=== PATIENT | female | born 1990 | race Caucasian/White ===

== ENCOUNTER → 2018-09-05 | Outpatient (CLI) | payer BC | LOC: ZCOL.LAB 16:52 | DX: L02.411 Cutaneous abscess of right axilla (principal) ==

== ENCOUNTER 2023-07-13 06:14 | Inpatient (IN) | payer BC ==
[2023-07-13] VITALS (58 sets, daily range): BP systolic 96–137; BP diastolic 53–90; PULSE 64–125; TEMP 97.8–98.6
[~2023-07-13] VITALS: Ht 177.8 cm; Wt 85.0 kg
--- NOTE | 2023-07-13 06:25 | NUR ---
PATIENT AMBULATORY TO UNIT WITH SPOUSE, GENEVIEVE. PATIENT ORIENTED TO LABOR ROOM 4 AND ASSISTED INTO A GOWN. PATIENT REPORTS GOOD MOVEMENT, DENIES CONTRACTIONS, LEAKING OF FLUID OR VAGINAL BLEEDING. EFM AND TOCO PLACED AND TRACING. ASSESSMENTS COMPLETE, CONSENTS EXPLAINED AND SIGNED.
[2023-07-13] MEDS ORDERED: LR 1,000 ML IV SCH (06:30)
[2023-07-13] MEDS ORDERED: LR & Oxytocin 500 ML IV SCH (06:30)
[2023-07-13] MEDS ORDERED: PRENATAL (06:38)
[2023-07-13] MEDS ORDERED: UNISOM25 MG PO (06:38)
[2023-07-13] MEDS ORDERED: VITAMIN B-625 MG (06:38)
[2023-07-13] MEDS ORDERED: MAGNESIUM200 MG PO (06:39)
[2023-07-13 07:18] LABS: BASO # 0.1 K/mm3 (0.0-0.2); BASO % 0.3 % (0.0-2.0); EOS # 0.1 K/mm3 (0.0-0.7); EOS % 0.9 % (0.0-4.0); GRAN # 10.6 K/mm3 (1.4-6.5); GRAN % 70.7 % (42.2-75.2); HEMOGLOBIN 11.9 g/dl (12.5-16.0); LYMPH # 2.9 K/mm3 (1.2-3.4); LYMPH % 19.3 % (20.0-51.0); MEAN CELL VOLUME 86 fl (80.0-100.0); MEAN CORPUSCULAR HEMOGLOBIN 30 pg (27-31); MEAN CORPUSCULAR HGB CONC 34 g/dl (33.0-37.0); MEAN PLATELET VOLUME 9.8 fl (7.4-10.4); MONO # 1.1 K/mm3 (0.1-0.6); MONO % 7.4 % (1.7-9.3); PLATELET COUNT 280 K/mm3 (130-400); RED BLOOD COUNT 4.03 M/mm3 (4.10-5.30); REDCELL DISTRIBUTION WIDTH-CV 12.8 % (11.5-14.5)
[2023-07-13 07:20] LABS: HEMATOCRIT 34.8 % (37.0-47.0)
--- NOTE | 2023-07-13 07:30 | NUR ---
IN ROOM TO DISCUSS PLAN OF CARE WITH PATIENT, DISCUSSES PLACEMENT OF COOKS CATHETER, PATIENT AGREES.
--- NOTE | 2023-07-13 07:45 | NUR ---
0780- IN PATIENTS ROOM PREPARING FOR MANUAL DILATOR INSERTION. 0701- CATHETER IN PLACE, THIS RN ASSISTS WITH FILLING UTERINE BALLOON TO 80ML OF IRRIGATION FOLLOWED BY 60 ML OF IRRIGATION IN THE VAGINAL BALLOON. PATIETN TOLERATED WELL. ShoopS CATHETERTAPED TO INSIDE OF PATIENTS LEFT THIGH.
--- NOTE | 2023-07-13 08:05 | NUR ---
PATIENT ON BIRTHING BALL AT THIS TIME, DIFFICULTY TRACING FHR. THIS RN AT BEDSIDE ADJUSTING EFM.
--- NOTE | 2023-07-13 09:15 | NUR ---
CONTRACTIONS NOT TRACING WELL AT THIS ITME, THIS RN TO BEDSIDE TO ADJUST TOCO DIFFICULTY TRACING CONTINUES DUE TO PATIENT MOVEMENT.
--- NOTE | 2023-07-13 09:53 | NUR ---
0948- PATIENT ASSISTED BACK TO BED AFTER USING THE RESTROOM, PATIENT LAYING SUPINE WITH BOTTOM OF THE BED OFF AND FEET ON THE FLOOR. 0953- TO BEDSIDE TO ASSESS PATIENT PROGRESSION. PALPATES MODERATE CONTRACTIONS.
[2023-07-13] MEDS ORDERED: ROPivacaine PF 0.2% 200 ML IV ONE (12:09)
--- NOTE | 2023-07-13 12:30 | NUR ---
1150-PATIENT REQUESTING AN EPIDURAL, CHITRA CALLED, LR BOLUS STARTED. 1215- CHITRA AT PATIENTS BEDISDE TO DISCUSS EPIDURAL PLACEMENT. PATIENT REPOSITIONED TO SITTING UPRIGHT ON SIDE OF BED. DIFFICULTY TRACING FHR DUE TO MATERNAL POSITION. 1222- SINGLE SHOT BY HUMBLE BUENROSTRO. 1224- TEST DOSE ADMINISTERED BY HUMBLE BUENROSTRO. 1230- PATIENT REPOSITIONED TO WEDGED RIGHT. THIS RN REAMINS AT BEDSIDE TO ASSESS VITAL SIGNS.
[2023-07-13] MEDS ORDERED: ePHEDrine 50 MG/10 ML VIAL IV PRN (12:45)
[2023-07-13] MEDS ORDERED: diphenhydrAMINE 50 MG/ML 1 ML VIAL IV PRN (12:45)
[2023-07-13] MEDS ORDERED: Naloxone 0.4 MG/ML VIAL IV PRN (12:45)
[2023-07-13] MEDS ORDERED: Ondansetron 4 MG/2 ML VIAL IV PRN (12:45)
[2023-07-13] MEDS ORDERED: diphenhydrAMINE 25 MG CAP PO PRN (12:45)
--- NOTE | 2023-07-13 13:15 | NUR ---
LIZARRAGA PLACED BY THIS RN, PATIENT REPOSITIONED TO LEFT LATERAL 'FLYING COWGIRL' WITH PEANUT BALL BETWEEN ANKLES.
--- NOTE | 2023-07-13 13:15 | NUR ---
LIZARRAGA PLACED BY THIS RN, PATIENT REPOSITIONED TO RIGHT LATERAL 'FLYING COWGIRL' WITH PEANUT BALL BETWEEN ANKLES.
--- NOTE | 2023-07-13 14:00 | NUR ---
THIS RN TO BEDISDE TO REPOSITION PATIENT. COOKS BALLOON FALLS OUT OF VAGINA WHILE REPOSITIONING. SVE /-2.
--- NOTE | 2023-07-13 14:07 | NUR ---
TO BEDSIDE TO ASSESS PROGRESS. NOTIFIED OF COOKS BALLOON FALLING OUT, SVE /-2. AROM AT THIS TIME, CLEAR FLUID. PATIENT REPOSITIONED TO LEFT LATERAL 'FLYING COWGIRL' WITH PEANUT BALL BETWEEN ANKLES.
--- NOTE | 2023-07-13 18:30 | NUR ---
DIFFICULTY TRACING FHR AND CTX DUE TO PT POSITIONING RN AT BS ATTEMPTING TO ADJUST EFM X2
--- NOTE | 2023-07-13 19:20 | NUR ---
191: IUPC PLACED BY DR. REBOLLAR. CLEAR FLUID RETURNED. 1919: FSE PLACED BY DR. REBOLLAR. FHR CORRELATION WITH EXTERNAL US. PT TOLORATED PROCEDURE WELL
--- NOTE | 2023-07-13 23:39 | NUR ---
2149: PT IN LITHOTOMY POSITION TO BEGIN PUSING WITH NURSE. GOOD MATERNAL PUSHING EFFORT. 5: FSE REMOVED BY RN DUE TO ARTIFACT. EXTERNAL US PLACED. 6: LIZARRAGA CATH REMOVED 2310: CONTINUED GOOD MATERNAL PUSHING EFFORT. DR. REBOLLAR RETURNS TO BS. 2315: IUPC REMOVED BY DR. REBOLLAR. PT REPORTING CONTRACTION OCCURANCES. 2331: VIABLE FEMALE INFANT DELIVERED WITH NEW NOTED MEC FLUID AND TERMINAL MEC. INFANT BULB SUCTIONED BY DR. REBOLLAR. INFANT PLACED ONTO MATERNAL ABDOMEN FOR ROUTINE NRP BY NURSERY RN. 2334: START OF REPAIR BY DR. REBOLLAR WHILE AWAITING DELAYED CORD CLAMPING. 2339: PLACENTA DELIVERED 2342: REPAIR COMPLETED BY DR. REBOLLAR. 2345: INITIATION OF RECOVERY FUNDAL RUBS STARTED BY DR. REBOLLAR. 2346: LOWER UTERINE SEG SWEEP BY DR. REBOLLAR. REQUEST FOR 600MG MISO. 2348: 600MG RECTAL MISO PLACED BY DR. REBOLLAR.
[2023-07-13] MEDS ORDERED: miSOPROStol 200 MCG TAB RC SCH (23:48)
[2023-07-14] VITALS (8 sets, daily range): BP systolic 100–132; BP diastolic 44–73; PULSE 59–114; TEMP 98–98.1
[2023-07-14] MEDS ORDERED: Naloxone 0.4 MG/ML VIAL IV PRN (00:15)
[2023-07-14] MEDS ORDERED: Phenylephrine/Mineral Oil/Petrolatum 57 GM TUBE RC PRN (00:15)
[2023-07-14] MEDS ORDERED: Witch Hazel 50% Pads Bulk TUB TP PRN (00:15)
[2023-07-14] MEDS ORDERED: Loratadine 10 MG TAB PO PRN (00:15)
[2023-07-14] MEDS ORDERED: Magnes Hydrox (MOM) 80 MG/ML 30 ML CUP PO PRN (00:15)
[2023-07-14] MEDS ORDERED: Mag/Al Hydrox/Simeth Susp 30 ML CUP PO PRN (00:15)
[2023-07-14] MEDS ORDERED: Ibuprofen 600 MG TAB PO SCH (00:15)
[2023-07-14] MEDS ORDERED: Acetaminophen 500 MG TAB PO SCH (00:15)
[2023-07-14] MEDS ORDERED: oxyCODONE 5 MG TAB PO PRN (00:15)
[2023-07-14] MEDS ORDERED: Measles/Mumps/Rubella Virus Vaccine Live w Diluent 0.5 ML VIAL SQ SCH (00:15)
--- NOTE | 2023-07-14 06:40 | NUR ---
PT REPORTS NEEDING TO USE BATHROOM AGAIN. PT ABLE TO HOLD EACH LEG OFF BED. PT STANDS UP NEXT TO BED WITH STANDBY ASSIST, ABLE TO BEAR FULL WEIGHT, DENIES NUMBNESS/TINGLING OR DIZZINESS. PT AMBULATES WITH STEADY GAIT INTO BATHROOM.
[2023-07-14] MEDS ORDERED: Sennosides/Docusate 8.6-50 MG TAB PO SCH (08:00)
[2023-07-14] MEDS ORDERED: traZODone 50 MG TAB PO PRN (21:00)
[2023-07-15 07:00] VITALS: BP 110/78; PULSE 82; TEMP 98
[2023-07-15] MEDS ORDERED: IBU600 MG PO (09:16)
[2023-07-15 09:45] VITALS: BP 123/71; PULSE 95; TEMP 98
--- NOTE | 2023-07-15 14:30 | NUR ---
Discharge instructions and follow up care reviewed with pt and at the bedside. Both verbalized an understanding, agreed with the plan and states no questions or concerns at this time.
== END 2023-07-15 15:10 | disposition home or self-care (01) | DRG 806 ==
LOC: LDR 06:14 → OB 07:22
PROVIDERS: ADMIT Obstetrics & Gynecology
PROC: 10E0XZZ Delivery of Products of Conception, External Approach (ICD-10-PCS; principal; 2023-07-13)
PROC: 0HQ9XZZ Repair Perineum Skin, External Approach (ICD-10-PCS; 2023-07-13)
PROC: 0UQMXZZ Repair Vulva, External Approach (ICD-10-PCS; 2023-07-13)
PROC: 10907ZC Drainage of Amniotic Fluid, Therapeutic from Products of Conception, Via Natural or Artificial Opening (ICD-10-PCS; 2023-07-13)
PROC: 0U7C7ZZ Dilation of Cervix, Via Natural or Artificial Opening (ICD-10-PCS; 2023-07-13)
PROC: 3E033VJ Introduction of Other Hormone into Peripheral Vein, Percutaneous Approach (ICD-10-PCS; 2023-07-13)
DX: O48.0 Post-term pregnancy (principal); O72.1 Other immediate postpartum hemorrhage; Z37.0 Single live birth; O71.82 Other specified trauma to perineum and vulva; O70.0 First degree perineal laceration during delivery; O77.0 Labor and delivery complicated by meconium in amniotic fluid; O99.284 Endocrine, nutritional and metabolic diseases complicating childbirth; E28.2 Polycystic ovarian syndrome; Z3A.40 40 weeks gestation of pregnancy
CPT/HCPCS: J2590; J2795; J7120

== ENCOUNTER → 2023-07-30 | Outpatient (CLI) | payer BC ==
[~2023-07-30] MED LIST: IBU600 MG PO; MAGNESIUM200 MG PO; PRENATAL; UNISOM25 MG PO; VITAMIN B-625 MG
--- NOTE | 2023-07-30 15:26 | NUR ---
Pt, Sean Marcelo, presents to walk-in clinic with 17 day old baby girl, Maru Marcelo, and her spouse Dion Marcelo. They desire a evaluation. Maru was born on [birth year] and weighed 7# 10.4oz (3470 gms). They were in clinic last week and Maru weighed 7# 0.1oz (3178 gms). After at clinic last week Maru had a gain of 0.9oz (26 gms) at the breast. The family has continued Maru except one manager employee relations feeding where Dion bottle feeds. They generally follow with 1.5-2oz of EBM or formula. Sean pumps BID or TID and gets 1.5-2oz each cycle. The family states they are comfortable with the combination of breast, bottle, pumping, formula and EBM. They do not have a desire to pump more frequently to see if milk supply increases. After today Maru had a gain of 1.1oz (32 ml). She is then provided a bottle of formula and she drinks 2oz. POC: continue feeding plan that the family is comfortable with. F/U: As scheduled with physicians, anticipate walk-in clinic next week. Questions invited and answered.
== END ==
LOC: LAC 06:13
DX: Z39.1 Encounter for care and examination of lactating mother (principal); Z71.89 Other specified counseling